=== PATIENT | female | born 1965 | race Caucasian/White ===

== ENCOUNTER 2025-02-02 06:24 | Day surgery (SDC) | payer SELFPAY ==
[2025-01-31 11:07] VITALS: BMI 22.8
[2025-02-02] MEDS ORDERED: BUPIVACAINE HCL/PF 2.5 MG/ML - 30 ML VIAL IJ ONE (07:45)
[2025-02-02] MEDS ORDERED: BUPIVACAINE HCL/PF 0.25% (2.5MG/ML) 10 ML VIAL ONE (07:45)
[2025-02-02] MEDS ORDERED: LIDOCAINE 1%/EPI 1:100000 (20 ML MULTI DOSE VIAL) ONE (07:45)
[2025-02-02] MEDS ORDERED: PROPOFOL 20 ML ONE ×7 (08:04→14:46)
[2025-02-02] MEDS ORDERED: ROCURONIUM BROMIDE 50 MG/5 ML SYRINGE ONE ×2 (08:04→10:17)
[2025-02-02] MEDS ORDERED: MIDAZOLAM HCL 2 MG/2 ML SINGLE DOSE VIAL ONE (08:05)
[2025-02-02] MEDS: LIDOCAINE 1%/EPI 1:100000 (20 ML MULTI DOSE VIAL) IJ ONE (10:02)
[2025-02-02] MEDS: BUPIVACAINE HCL/PF 0.25% (2.5MG/ML) 10 ML VIAL IJ ONE ×5 (10:25→14:04)
[2025-02-02] MEDS ORDERED: ePHEDrine SULFATE 50 MG/1 ML AMPULE ONE (10:57)
[2025-02-02] MEDS ORDERED: PROPOFOL 40 ML ONE ×3 (11:00→13:17)
[2025-02-02] MEDS ORDERED: SUGAMMADEX SODIUM 200 MG/2 ML VIAL ONE (11:08)
[2025-02-02] MEDS ORDERED: PROPOFOL 60 ML ONE (11:46)
[2025-02-02] MEDS ORDERED: HYDROmorphone HCL/PF 1 MG/ML VIAL ONE ×2 (13:13→14:18)
[2025-02-02 15:29] VITALS: TEMP 97
[2025-02-02] MEDS ORDERED: oxyCODONE HCL 5 MG TABLET PO PRN (15:29)
[2025-02-02 17:13] VITALS: BP 118/65; PULSE 79; RESP 16
== END 2025-02-02 17:48 | disposition home or self-care (01) ==
LOC: FASU 06:24
PROVIDERS: ATTEND Surgery
PROC: 0H0V0ZZ Alteration of Bilateral Breast, Open Approach (ICD-10-PCS; principal; 2025-02-02 10:04)
DX: Z41.1 Encounter for cosmetic surgery (principal); N62 Hypertrophy of breast
CPT/HCPCS: 88305-TC; 94760